=== PATIENT | female | born 1995 | race Caucasian/White ===

== ENCOUNTER 2016-08-15 20:34 | Emergency (ER) | payer MEDICAID ==
[~2016-08-15] VITALS: Ht 165.1 cm; Wt 65.9 kg
[~2016-08-15 20:34] MED LIST: IBUP-232 PO; METR-1 PO
[2016-08-15 20:42] VITALS: BP 129/86; PULSE 76; RESP 16; TEMP 98.1; O2SAT 98
[2016-08-15 20:55] LABS: BLOOD, URINE NEG (NEG); GLUCOSE,URINE NEG (NEG); KETONE, URINE TRACE mg/dL (NEG); NITRITE,URINE NEG (NEG); PH, URINE 5.5 (5.0-8.5)
[2016-08-15 20:56] LABS: URINE COLOR YELLOW (YELLW/STRAW)
[2016-08-15 20:59] LABS: BACTERIA, URINE FEW /hpf; COMMENT (UR) CULT NOT INDICATED; CULTURE IF INDICATED CULT NOT INDICATED; RBC, URINE 0-2 /hpf (0-3); SQUAMOUS EPITHELIAL CELL URINE > 8 /hpf (0-5)
[2016-08-15] MEDS ORDERED: BIRTH CONTROL PILL PO (23:30)
[2016-08-16 00:35] VITALS: BP 124/73; PULSE 80; RESP 16; O2SAT 100
[2016-08-16 01:19] LABS: AUTOMATED NEUTROPHIL # 3.5 TH/MM3 (1.8-7.7); BASOPHIL # 0.1 TH/MM3 (0-0.2); BASOPHIL % 0.7 % (0.0-2.0); EOSINOPHIL # 0.3 TH/MM3 (0-0.4); EOSINOPHIL % 3.7 % (0.0-4.0); HEMATOCRIT 39.1 % (35.0-46.0); HEMO FLAGS DIFF FINAL; LYMPH % 40.8 % (9.0-44.0); MEAN CELL VOLUME 86.7 FL (80.0-100.0); MEAN CORPUSCULAR HEMOGLOBIN 29.5 PG (27.0-34.0); MONO % 6.1 % (0.0-8.0); NEUT % 48.7 % (16.0-70.0); PLATELET COUNT 273 TH/MM3 (150-450); RED BLOOD COUNT 4.51 MIL/MM3 (4.00-5.30); RED CELL DISTRIBUTION WIDTH 11.9 % (11.6-17.2); WHITE BLOOD COUNT 7.4 TH/MM3 (4.0-11.0)
[2016-08-16 01:25] LABS: POTASSIUM 3.4 MEQ/L (3.5-5.1)
[2016-08-16 01:28] LABS: BICARBONATE 25.8 MEQ/L (21.0-32.0)
[2016-08-16 02:15] VITALS: BP_SYST 113; BP_SYST 120; BP_SYST 121; BP_DIAS 81; BP_DIAS 88; PULSE 75; RESP 16; O2SAT 100
--- NOTE | 2016-08-16 02:59 | RADHPO ---
EXAM DATE/TIME: 08/16/2016 02:18 [facility] COMPARISON: No previous studies available for comparison. INDICATIONS : Left sided flank pain. ORAL CONTRAST: No oral contrast ingested. RADIATION DOSE: 7.63 CTDIvol (mGy) MEDICAL HISTORY : None SURGICAL HISTORY : None. ENCOUNTER: Initial ACUITY: 1 day PAIN SCALE: 8/10 LOCATION: Left flank TECHNIQUE: Volumetric scanning of the abdomen and pelvis was performed. Using automated exposure control and ad justment of the mA and/or kV according to patient size, radiation dose was kept as low as reasonably achievable to obtain optimal diagnostic quality images. FINDINGS: LOWER LUNGS: The visualized lower lungs are clear. LIVER: Homogeneous density without lesion. There is no dilation of the biliary tree. No calcified gallston es. SPLEEN: Normal size without lesion. PANCREAS: Within normal limits. KIDNEYS: Normal in size and shape. There is no mass, stone, or hydronephrosis. ADRENAL GLANDS: Within normal limits. VASCULAR: There is no aortic aneurysm. BOWEL/MESENTERY: The stomach, small bowel, and colon demonstrate no acute abnormality. There is no free intraperitone al air or fluid. The appendix is well-visualized, normal. ABDOMINAL WALL: Within normal limits. RETROPERITONEUM: There is no lymphadenopathy. BLADDER: No wall thickening or mass. REPRODUCTIVE: Within normal limits. INGUINAL: There is no lymphadenopathy or hernia. MUSCULOSKELETAL: Mild S-shaped thoracolumbar curvature noted. No acute bony normality demonstrated. CONCLUSION: 1. No acute abnormality demonstrated. No renal or ureteral calculus or evidence of obstructive uropat hy. 2. Apparent mild scoliosis. Santana Ta MD on August 16, 2016 at 2:55 Board Certified Radiologist. This report was verified electronically.
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
[2016-08-16] MEDS ORDERED: NAPR550 PO (03:07)
[2016-08-16] MEDS ORDERED: METR0.7528 VAGINAL (03:07)
[2016-08-16 11:54] LABS: CHLAMYDIA PCR NOT DETECTED (NOT DETECT); NEISSERIA PCR NOT DETECTED (NOT DETECT)
== END 2016-08-16 03:20 | disposition home or self-care (01) ==
LOC: PHED 20:34
DX: N76.0 Acute vaginitis (principal); N94.0 Mittelschmerz; Z86.59 Personal history of other mental and behavioral disorders
CPT/HCPCS: 74176; 80048; 81001; 84703; 85025; 87210; 87491; 87591

== ENCOUNTER 2016-08-23 00:19 | Emergency (ER) | payer MEDICAID, OTHER ==
[~2016-08-23] VITALS: Ht 165.1 cm; Wt 68.7 kg
[~2016-08-23 00:19] MED LIST changes: +BIRTH CONTROL PILL PO; -IBUP-232 PO; -METR-1 PO; +METR0.7528 VAGINAL; +NAPR550 PO
[2016-08-23 00:26] VITALS: BP 118/88; PULSE 119; RESP 20; TEMP 98.8; O2SAT 98
[2016-08-23 00:34] VITALS: BP 118/88; PULSE 119; RESP 18; TEMP 98.8; O2SAT 98
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
[2016-08-23] MEDS ORDERED: ONDANSETRON ODT 4 MG TAB PO ONE (01:00)
[2016-08-23 01:15] LABS: GLUCOSE,URINE NEG (NEG); KETONE, URINE NEG (NEG); NITRITE,URINE NEG (NEG)
[2016-08-23 01:16] LABS: BLOOD, URINE MOD (NEG)
[2016-08-23 01:20] LABS: METHOD OF COLLECTION VOIDED; URINE COLOR YELLOW (YELLW/STRAW)
[2016-08-23 01:22] LABS: BACTERIA, URINE FEW /hpf; BARBITURATES, URINE NEG (NEG); COCAINE, URINE NEG (NEG); COMMENT (UR) CULT NOT INDICATED; CULTURE IF INDICATED CULT NOT INDICATED; SQUAMOUS EPITHELIAL CELL URINE >8 /hpf (0-5); WBC, URINE 0-2 /hpf (0-5)
[2016-08-23 01:24] LABS: AMPHETAMINE, URINE NEG (NEG)
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
[2016-08-23 01:51] VITALS: BP 127/82; PULSE 111; RESP 18; O2SAT 96
== END 2016-08-23 02:02 | disposition home or self-care (01) ==
LOC: PHED 00:19
DX: F19.20 Other psychoactive substance dependence, uncomplicated (principal); F11.20 Opioid dependence, uncomplicated; M25.531 Pain in right wrist; S50.11XA Contusion of right forearm, initial encounter; V49.9XXA Car occupant (driver) (passenger) injured in unspecified traffic accident, initial encounter
CPT/HCPCS: 71020; 73090; 73120; 80307; 80320; 81001; 99284

== ENCOUNTER 2017-04-09 14:08 | Emergency (ER) | payer SELFPAY ==
[~2017-04-09] VITALS: Ht 165.1 cm; Wt 77.0 kg
[~2017-04-09 14:08] MED LIST changes: -METR0.7528 VAGINAL; -NAPR550 PO
[2017-04-09 14:12] VITALS: BP 124/81; PULSE 110; RESP 16; TEMP 98.8; O2SAT 97
[2017-04-09] MEDS ORDERED: SPRI28TA PO (14:24)
[2017-04-09] MEDS ORDERED: IBUP400T20 PO (14:53)
[2017-04-09] MEDS ORDERED: PRED20 PO (14:53)
--- NOTE | 2017-04-09 14:56 | PD ---
HPI . Cough and congestion 7 days Chief Complaint: Cold / Flu Symptoms Time Seen by Provider: 14:39 Travel History International Travel<30 days: No Contact w/Intl Traveler<30days: No Traveled to known affect area: No History of Present Illness HPI 21-year-old female presents emergency department for evaluation of cough and congestion 7 days. Patient states she has had a fever intermittently. Last fever was 3 days ago. Patient states she has a dry nonproductive cough, headache, sore throat and head congestion. Patient denies any major medical history. Patient takes control daily. Patient does not have any allergies. Patient denies any chest pain, shortness breath, abdominal pain nausea, vomiting or lightheadedness. PFSH Past Medical History Medical History: Denies Significant Hx Anxiety: Yes Depression: Yes Diabetes: No Diminished Hearing: No Immunizations Current: Yes Tetanus Vaccination: < 5 Years Influenza Vaccination: No ?: Not LMP: 04-05-17 : 1 Para: 0 Miscarriage: 0 : 1 Past Surgical History Surgical History: No Previous Surgery Social History Alcohol Use: No Tobacco Use: No Substance Use: Yes (Marijuana daily xanax) Allergies-Medications (Allergen,Severity, Reaction): Coded Allergies: No Known Allergies (Verified , 04/09/17) Reported Meds & Prescriptions Reported Meds & Active Scripts Active Reported Sprintec 28 (Norgestimate-Ethinyl Estradiol) 0.25-35 mg-Mcg Tab 1 Tab PO DAILY Review of Systems Except as stated in HPI: all other systems reviewed are Neg Physical Exam Narrative GENERAL: Well-nourished, well-developed 21-year-old female patient in no acute distress. Nontoxic appearing. SKIN: Focused skin assessment warm/dry. HEAD: Normocephalic. Atraumatic EYES: No scleral icterus. No injection or drainage. NECK: Supple, trachea midline. No JVD or lymphadenopathy. THROAT: Mild pharyngeal injection and tonsillar hypertrophy. No exudate noted. Airway is patent. CARDIOVASCULAR: Regular rate and rhythm without murmurs, gallops, or rubs. RESPIRATORY: Breath sounds equal bilaterally. No accessory muscle use. GASTROINTESTINAL: Abdomen soft, non-tender, nondistended. MUSCULOSKELETAL: No cyanosis, or edema. BACK: Nontender without obvious deformity. No CVA tenderness. Data Data Last Documented VS Vital Signs Date Time Temp Pulse Resp B/P (MAP) Pulse Ox O2 Delivery O2 Flow Rate FiO2 04/09/17 14:21 97 Room Air 04/09/17 14:19 (95) 04/09/17 14:12 98.8 110 16 [facility] Medical Decision Making Medical Screen Exam Complete: Yes Emergency Medical Condition: Yes Differential Diagnosis Differential diagnoses include but not limited to sinusitis, URI, viral syndrome , bronchitis Narrative Course 21-year-old female presents to the emergency department for evaluation of cough and congestion 7 days. Patient's physical exam is unremarkable except for mild pharyngeal injection and tonsillar hypertrophy.Based on patient's symptoms , clinical presentation, vital sign review and physical exam it is not necessary to admit the patient to the hospital or keep the patient in the emergency department for further evaluation. Patient will be discharged home with prescription for prednisone and Motrin. Patient did request a work note to go back to work on Wednesday. Patient will be given a work note. Diagnosis Primary Impression: Pharyngitis with viral syndrome Referrals: Primary Care Physician Patient Instructions: General Instructions, Pharyngitis (ED) Departure Forms: Tests/Procedures, Work Release Enter return to work date: Apr 11, 2017 Additional Instructions: Please return to emergency department if your symptoms return or worsen. Get plenty of rest, stay hydrated. Follow up with your primary care provider. Take medications as prescribed. Med/Other Pt SpecificInfo: Prescription(s) given Scripts Ibuprofen (Ibuprofen) 400 Mg Tab 400 MG PO Q8H Y for HEADACHE OR TEMP > 101 F, #6 TAB 0 Refills Prov: Helen Li 04/09/17 Prednisone (Prednisone) 20 Mg Tab 40 MG PO DAILY for 3 Days, #3 TAB 0 Refills Take 40 mg (2 tablets) daily for 5 days Prov: Helen Li 04/09/17 Disposition: 01 DISCHARGE HOME Condition: Stable Helen Li Apr 09, 2017 14:56
== END 2017-04-09 15:07 | disposition home or self-care (01) ==
LOC: PHEFT 14:08
DX: B34.9 Viral infection, unspecified (principal); F41.9 Anxiety disorder, unspecified; F32.9 Major depressive disorder, single episode, unspecified
CPT/HCPCS: 99283

== ENCOUNTER 2017-07-23 14:28 | Emergency (ER) | payer SELFPAY ==
[~2017-07-23] VITALS: Ht 165.1 cm; Wt 77.0 kg
[~2017-07-23 14:28] MED LIST changes: -BIRTH CONTROL PILL PO; +IBUP1TAB5 PO; +PRED20 PO; +SPRI28TA PO
[2017-07-23 14:30] VITALS: BP 141/85; PULSE 103; RESP 16; TEMP 99.4; O2SAT 98
[2017-07-23] MEDS ORDERED: SODIUM CHLOR 0.9% 1000 ML INJ 1,000 ML IV ONE (15:16)
[2017-07-23 15:22] VITALS: O2SAT 98
[2017-07-23] MEDS ORDERED: SODIUM CHLORIDE 0.9% FLUSH 10 ML FLUSH IVF PRN (15:30)
[2017-07-23] MEDS ORDERED: PROCHLORPERAZINE INJ 10 MG/2 ML VIAL IVP ONE (15:30)
[2017-07-23] MEDS ORDERED: diphenhydrAMINE HCL 50 MG/ML VIAL IVP ONE (15:30)
[2017-07-23] MEDS ORDERED: ASPI1TAB93 PO (15:32)
--- NOTE | 2017-07-23 15:34 | PD ---
HPI Chief Complaint: Headache Time Seen by Provider: 15:07 Travel History International Travel<30 days: No Contact w/Intl Traveler<30days: No Traveled to known affect area: No History of Present Illness HPI 22-year-old female arrives complaining of headache which is located in the vertex and towards the mid anterior scalp. She reports a history of headaches and relates that today's headache is somewhat different than normal, with normal involving the bitemporal distribution. Associated symptoms include vomiting. No neck stiffness. No fever. Excedrin has not helped. Onset gradual. Pain is not worse with bending over or lifting. Pt denies neck pain. PFSH Past Medical History Anxiety: Yes Depression: Yes Diabetes: No Diminished Hearing: No Immunizations Current: Yes Migraines: Yes Influenza Vaccination: No ?: Not LMP: BCP : 1 Para: 0 Miscarriage: 0 : 1 Past Surgical History Surgical History: No Previous Surgery Social History Alcohol Use: No Tobacco Use: No Substance Use: No (denies) Allergies-Medications (Allergen,Severity, Reaction): Coded Allergies: No Known Allergies (Verified Adverse Reaction, Unknown, 07/23/17) Reported Meds & Prescriptions Reported Meds & Active Scripts Active Phenergan (Promethazine HCl) 25 Mg Tablet 25 Mg PO Q6H PRN Reported Excedrin Extra Strength ([id number]) 250 Mg-250 Mg-65 Mg Tab 1 Tab PO PRN Review of Systems Except as stated in HPI: all other systems reviewed are Neg General / Constitutional: No: Fever Physical Exam Narrative GENERAL: 22-year-old female pleasant well-nourished well-developed SKIN: Warm and dry. HEAD: Atraumatic. Normocephalic. EYES: Pupils equal and round. No scleral icterus. No injection or drainage. ENT: No nasal bleeding or discharge. Mucous membranes pink and moist. NECK: Trachea midline. No JVD. Supple with normal range of motion. CARDIOVASCULAR: Regular rate and rhythm. RESPIRATORY: No accessory muscle use. Clear to auscultation. Breath sounds equal bilaterally. GASTROINTESTINAL: Abdomen soft, non-tender, nondistended. Hepatic and splenic margins not palpable. MUSCULOSKELETAL: Extremities without clubbing, cyanosis, or edema. No obvious deformities. NEUROLOGICAL: Awake and alert. No obvious cranial nerve deficits. Motor grossly within normal limits. Five out of 5 muscle strength in the arms and legs. Normal speech. PSYCHIATRIC: Appropriate mood and affect; insight and judgment normal. Data Data Last Documented VS Vital Signs Date Time Temp Pulse Resp B/P (MAP) Pulse Ox O2 Delivery O2 Flow Rate FiO2 07/23/17 15:22 98 Room Air 07/23/17 14:30 99.4 103 16 141/85 (103) Orders Orders Ecg Monitoring (07/23/17 15:16) Iv Access Insert/Monitor (07/23/17 15:16) Oximetry (07/23/17 15:16) Sodium Chloride 0.9% Flush (Ns Flush) (07/23/17 15:30) Prochlorperazine Inj (Compazine Inj) (07/23/17 15:30) Diphenhydramine Inj (Benadryl Inj) (07/23/17 15:30) Sodium Chlor 0.9% 1000 Ml Inj (Ns 1000 M (07/23/17 15:16) MDM Medical Decision Making Medical Screen Exam Complete: Yes Emergency Medical Condition: Yes Medical Record Reviewed: Yes Differential Diagnosis ICH, meningitis, migraine, thrombosis Narrative Course The patient has received Compazine Benadryl and IV fluids. Resolution of cephalgia reported. Return precautions discussed. Scripts as below. Diagnosis Primary Impression: Cephalalgia Qualified Codes: R51 - Headache Referrals: Primary Care Physician 2 days Med/Other Pt SpecificInfo: Prescription(s) given Scripts Promethazine (Phenergan) 25 Mg Tablet 25 MG PO Q6H Y for HEADACHE, #12 TAB 0 Refills Prov: Jaziel Humphrey MD 07/23/17 Disposition: 01 DISCHARGE HOME Condition: Stable Jaziel Humphrey MD Jul 23, 2017 15:34
[2017-07-23] MEDS ORDERED: PROM25TA10 PO (16:07)
== END 2017-07-23 16:19 | disposition home or self-care (01) ==
LOC: PHED 14:28
DX: R51 Headache (principal); R11.10 Vomiting, unspecified
CPT/HCPCS: 96374; 96375; 99284; J0780; J1200; J7030